=== PATIENT | male | born 1945 | race Caucasian/White ===

== ENCOUNTER 2017-01-08 09:47 | Day surgery (SDC) | payer OTHER ==
[~2017-01-08] VITALS: Ht 177.8 cm; Wt 69.8 kg
[~2017-01-08 09:47] MED LIST: AMIODARONE HCL200 MG PO; ASPIR 8181 M1 PO; B-1100 MG PO; BACTRIM,SEPTRA S1 ML PO; BUSPAR10 MG PO; CHLORASEPTIC177 ML MM; DELTASONE20 M1 PO; DUONEB 2.5-0.5 M3 ML AEROSOL; ELIQUIS5 MG PO; FLOMAX0.4 MG PO; HUMALOG100 UNIT/1 SC; HYCODAN SYRUP480 ML PO; LANTUS 3 M100 UNITS1 SC; MIRALAX17 GM PO; MORPHINE S10 MG/5 ML PO; PENNSAID2 GM TP; PEPCID AC20 MG PO; PROZAC20 MG PO; PULMICORT1 MG/2 ML IH; SENNA8.6 MG PO; TRAZODONE HCL50 MG PO; TUSSIN100 MG/5 M PO; VICODIN HP 10-1 EACH PO; XYLOCAINE10 MG/1 ML IH; ZOVIRAX200 MG PO
[2017-01-08 10:23] LABS: POINT-OF-CARE METER ID UU14174212
[2017-01-08 10:29] LABS: HEMATOCRIT 27.9 % (38.0-50.0); MCHC 31.5 G/DL (30.0-36.0); MCV 95.2 FL (86-99); MEAN PLAT.VOLUME 8.4 uM^3 (9.0-12.4); PLATELET COUNT 189 K/uL (156-360); RBC DIS.WIDTH-CV 19.1 % (11.8-14.6); RBC DIS.WIDTH-SD 66.7 % (39-53); RED BLOOD COUNT 2.93 M/uL (4.00-5.50); WHITE BLOOD COUNT 9.9 K/uL (4.1-10.2)
[2017-01-08 10:31] VITALS: BP 148/71
[2017-01-08 10:50] LABS: ANION GAP 8 MEQ/L (2-14); CHLORIDE 94 MEQ/L (99-109); POTASSIUM 4.4 MEQ/L (3.7-5.4); SAMPLE HEMOLYSIS CHECK 0; SAMPLE ICTERIC CHECK 0; SAMPLE LIPEMIA CHECK 0; SODIUM 136 MEQ/L (136-147)
[2017-01-08 10:55] LABS: GFR ESTIMATE (CALCULATED) > 59 mL/min/; GLUCOSE 155 mg/dL (70-99); UREA NITROGEN (BUN) 29 mg/dL (9-23)
[2017-01-08 13:00] VITALS: BP 144/61
[2017-01-08 13:20] LABS: POINT-OF-CARE METER ID UU13113675
[2017-01-08 13:37] VITALS: BP 120/80
== END 2017-01-08 13:55 | disposition home or self-care (01) ==
LOC: SDC 09:47
PROVIDERS: Ophthalmology
DX: H59.022 Cataract (lens) fragments in eye following cataract surgery, left eye (principal); H43.12 Vitreous hemorrhage, left eye; H43.392 Other vitreous opacities, left eye; I10 Essential (primary) hypertension; E11.9 Type 2 diabetes mellitus without complications; I48.91 Unspecified atrial fibrillation; Z95.1 Presence of aortocoronary bypass graft; E78.5 Hyperlipidemia, unspecified; J43.9 Emphysema, unspecified; M35.3 Polymyalgia rheumatica; Z79.4 Long term (current) use of insulin; Z87.891 Personal history of nicotine dependence; Z79.01 Long term (current) use of anticoagulants; Z88.2 Allergy status to sulfonamides; Z85.118 Personal history of other malignant neoplasm of bronchus and lung
CPT/HCPCS: 80048; 82948; 85027; 93005; J0690; J0713; J1100; J2930